=== PATIENT | male | born 1945 | race Caucasian/White ===

== ENCOUNTER 2018-08-02 14:12 | Emergency (ER) | payer MEDICARE ==
[~2018-08-02] VITALS: Ht 172.7 cm; Wt 145.4 kg
[2018-08-02] MEDS ORDERED: SPIR100T3 PO (14:31)
[2018-08-02] MEDS ORDERED: BUPR75TA5 PO (14:31)
[2018-08-02] MEDS ORDERED: FURO40TA2 PO (14:31)
[2018-08-02] MEDS ORDERED: RANI1SYP PO (14:31)
[2018-08-02] MEDS ORDERED: XARE20TA PO (14:31)
[2018-08-02] MEDS ORDERED: CARV6.25 PO (14:31)
[2018-08-02] MEDS ORDERED: TRAM50TA2 PO (14:55)
[2018-08-02 15:05] VITALS: BP 98/60
[2018-08-02] MEDS ORDERED: NORCO, ANEXSIA 5/325MG TABLET (HYDROcodone/ACETAMINOPHEN) PO ONE (15:30)
[2018-08-02] MEDS ORDERED: IBUPROFEN 400 MG TAB PO ONE (15:30)
== END 2018-08-02 15:44 | disposition home or self-care (01) ==
LOC: EDBD 14:12 → M ED 14:12
DX: K46.9 Unspecified abdominal hernia without obstruction or gangrene (principal); I48.91 Unspecified atrial fibrillation; I10 Essential (primary) hypertension; K75.9 Inflammatory liver disease, unspecified; Z79.899 Other long term (current) drug therapy; Z79.01 Long term (current) use of anticoagulants